=== PATIENT | male | born 1970 | race Caucasian/White ===

== ENCOUNTER 2016-02-16 20:46 | Emergency (ER) | payer OTHER ==
[2016-02-16 21:08] VITALS: BP 143/86
[2016-02-16] MEDS ORDERED: Aspirin Low Dose CHEW TAB* 81 MG PO ONE (21:13)
[2016-02-16] MEDS ORDERED: Aspirin TAB* 325 MG ONE (21:32)
[2016-02-16] MEDS ORDERED: Aspirin Low Dose CHEW TAB* 81 MG ONE (21:40)
--- NOTE | 2016-02-16 21:40 | UC ---
blair Vizcaino Timothy, scribed for Kenzie Barajas MD on 02/16/16 at 2110 . Syncope/New Syncope HPI - HPI Summary HPI Summary: Alex Lea Jr. is a 45 yo male presenting to [facility] with two syncopal episodes at 1800 and 1815. The first time he was sitting at his computer chair and started feeling dizzy, and closed his eyes for a second and opened them and a few minutes had passed. He then got up and told a coworker he wasnt feeling well, and then shortly after fell to all fours and lost consciousness. He has also had bilateral 4/10 kidney (right worse than left) and stomach pain, which is chronic. He has not had much to eat today, excepting some water and cookies. He states he has a previous Hx of similar episodes, for which his prior EKG was done in 2007, no definite diagnosis. He denies chest pain, SOB, headache, focal weakness. His Hx includes HTN, borderline DM, and anxiety. - History Of Current Complaint Stated Complaint: SYNCOPE Time Seen by Provider: 02/16/16 21:16 Hx Obtained From: Patient, Family/Dirt Contractor - father Onset/Duration: Sudden Onset Activity At Onset: At Rest Timing: Intermittent Episode Lasting - minutes Frequency: Episodes x___ - 2 Context: Unwitnessed, Loss Of Consciousness Associated Head Trauma: No Pain Intensity: 4 Pain Scale Used: 0-10 Numeric Aggravating Factor(s): Nothing Alleviating Factor(s): Spontaneous Resolution Associated Signs And Symptoms: Positive: Dizzy, Other - "kidney pain" - Risk Factors Cardiac Risk Factors: Hypertension, Family History - Allergies/Home Medications Allergies/Adverse Reactions: Allergies Allergy/AdvReac Type Severity Reaction Status Date / Time Penicillins Allergy Severe Rash Verified 02/16/16 21:09 ALL ANTIBIOTICS Allergy Severe Rash Uncoded 02/16/16 21:09 PMH/Surg Hx/FS Hx/Imm Hx Endocrine History Of: Denies: Diabetes, Thyroid Disease Cardiovascular History Of: Reports: Hypertension Denies: Cardiac Disorders Respiratory History Of: Denies: COPD, Asthma GI/ History Of: Denies: Ulcer Psychological History Of: Reports: Anxiety - Surgical History Surgical History: Yes Surgery Procedure, Year, and Place: left knee patella fx repair with pins and wires in place - Family History Known Family History: Positive: Cardiac Disease - Social History Occupation: Employed Full-time Alcohol Use: None Substance Use Type: None Smoking Status (MU): Never Smoked Tobacco Household Exposure Type: Cigarettes Review of Systems Constitutional: Negative Skin: Negative Eyes: Negative ENT: Negative Respiratory: Negative Cardiovascular: Negative Gastrointestinal: Negative Genitourinary: Other - "kidney pain" Motor: Negative Neurovascular: Negative Musculoskeletal: Negative Neurological: Other - syncope Psychological: Negative All Other Systems Reviewed And Are Negative: Yes Physical Exam Triage Information Reviewed: Yes Appearance: Well-Appearing, No Pain Distress, Obese Vital Signs: Initial Vital Signs Temp 96.7 F 02/16/16 20:55 Pulse 79 02/16/16 20:55 Resp 20 02/16/16 20:55 BP 143/86 02/16/16 20:55 Pulse Ox 100 02/16/16 20:55 Vital Signs Reviewed: Yes Eyes: Positive: Conjunctiva Clear ENT: Positive: Hearing grossly normal. Negative: Muffled/hoarse voice Neck: Positive: Supple, Nontender Respiratory: Positive: Lungs clear, Normal breath sounds, No respiratory distress Cardiovascular: Positive: RRR, No Murmur, Pulses Normal, Brisk Capillary Refill Abdomen Description: Positive: Nontender, No Organomegaly, Soft, CVA Tenderness (R) - worse than L, CVA Tenderness (L). Negative: Distended, Guarding, McBurney 's Point Tenderness, Peritoneal Signs, Pulsatile Mass Bowel Sounds: Positive: Present Musculoskeletal: Positive: Strength Intact, ROM Intact, Other: - no calf tenderness Neurological: Positive: Alert, Muscle Tone Normal Psychological Exam: Normal Skin Exam: Normal Diagnostics - EKG Cardiac Rate: 2051: NSR @ 84 BPM, AV/IV conduction, normal axis, normal QTC , small Q in III, inverted and flat T-waves in V5 and V6, no acute changes compared to 10/17/2007 Cardiac Rhythm: Sinus: Normal Syncope Course/Dx - Course Course Of Treatment: Alex Lea Jr. is a 45 yo male presenting to [facility] S/P 2 syncopal episodes with kidney and chronic stomach pain. After examination and review of EKG, he will be transfered to [facility] for higher level of care involving lab work and further imaging. - Differential Dx/Diagnosis Differential Diagnosis/HQI/PQRI: Cerebral Vascular Accident, Coronary Artery Disease, Dysrhythmia, Hypoglycemia, Myocardial Infarction, Seizure, Transient Ischemic Attack, Vasovagal Episode Provider Diagnoses: syncope - Physician Notification/Consults Discussed Patient Care With: [id number] Y[address] JOHNSON) - Discussed Pt condition. MD will see in ED. Instructed by Provider To: MD Will See In ED Discharge - Discharge Plan Condition: Stable Disposition: TRANS HIGHER LVL OF CARE FAC Discharge Disposition Comment: [facility] by ambulance Referrals: Ganga Reynoso DO [Primary Care Provider] - The documentation as recorded by the blair ricardo Timothy accurately reflects the service I personally performed and the decisions made by , Kenzie Barajas MD.
== END 2016-02-16 22:04 | disposition short-term general hospital (02) ==
LOC: UCEAST 20:46
DX: R55 Syncope and collapse (principal); R10.84 Generalized abdominal pain; N23 Unspecified renal colic; Z88.1 Allergy status to other antibiotic agents; Z88.0 Allergy status to penicillin; Z77.22 Contact with and (suspected) exposure to environmental tobacco smoke (acute) (chronic)
CPT/HCPCS: 93005; A9270-GY

== ENCOUNTER 2016-02-16 22:11 | Emergency (ER) | payer OTHER ==
[2016-02-16] MEDS ORDERED: NS 0.9% 1000 ML* 1,000 ML IV ONE (22:25)
[2016-02-16 23:03] LABS: Hematocrit 46 % (42-52); Hemoglobin 15.5 g/dl (14.0-18.0); Mean Corpuscular HGB Conc 34 g/dl (31-36); Mean Corpuscular Hemoglobin 30 pg (27-31); Mean Corpuscular Volume 90 fL (80-94); Mean Platelet Volume 9 um3 (7.4-10.4); Red Blood Count 5.11 10^6/ul (4.0-5.4); Red Cell Distribution Width 15 % (10.5-15); White Blood Count 12.6 10^3/ul (3.5-10.8)
[2016-02-16 23:18] LABS: Albumin 4.1 g/dL (3.2-5.2); BUN/Creatinine Ratio 18.5 (8-20); Calcium 9.4 mg/dL (8.6-10.3); EGFR Non-African American 74.6 (>60); Globulin 3.3 g/dL (2-4); Magnesium 1.8 mg/dL (1.9-2.7); Potassium 3.3 mmol/L (3.5-5.0); Total Bilirubin 0.9 mg/dL (0.2-1.0); Total Protein 7.4 g/dL (6.4-8.9)
[2016-02-16 23:49] LABS: TSH (Thyroid Stimulating Horm) 1.04 mcIU/mL (0.34-5.60)
[2016-02-17 00:10] VITALS: BP 112/68
--- NOTE | 2016-02-17 00:21 | ED ---
Jacinta Vizcaino Erika, scribed for Uche Malone MD on 02/16/16 at 2244 . Syncope/Near Syncope - HPI Summary HPI Summary: Patient is a 45-year-old male presenting to the ED with a CC of two syncopal episodes this evening. Patient reports that he was sitting down doing paperwork , when he began to feel dizzy, closed his eyes, and when he opened them 1.5 minutes had passed. In the second episode, pt reports he was walking, he felt dizzy, so he got onto his knee and hand and lost consciousness and fell onto the ground - he estimates this lasted 1 minute. Pt reports that he still becomes dizzy with standing. He also reports he has become dizzy in the past with blood draws and similar experiences. He is followed by Dr. Reynoso, and has an appointment with him in 2 days. - History Of Current Complaint Time Seen by Provider: 02/16/16 22:19 Hx Obtained From: Patient Onset/Duration: Gradual Onset, Lasting Minutes, Still Present Timing: Intermittent Episode Lasting Context: Unwitnessed, Loss Of Consciousness - stated Activity At Onset: Other - first sitting, Aggravating Factor(s): Position Change - Standing Alleviating Factor(s): Spontaneous Resolution Associated Signs And Symptoms: Dizzy - Allergies/Home Medications Allergies/Adverse Reactions: Allergies Allergy/AdvReac Type Severity Reaction Status Date / Time Penicillins Allergy Severe Rash Verified 02/16/16 21:09 ALL ANTIBIOTICS Allergy Severe Rash Uncoded 02/16/16 21:09 PMH/Surg Hx/FS Hx/Imm Hx Endocrine/Hematology History: Reports: Other Endocrine/Hematological Disorders - Borderline diabetes Denies: Hx Diabetes, Hx Thyroid Disease Cardiovascular History: Reports: Hx Hypertension Respiratory History: Denies: Hx Asthma, Hx Chronic Obstructive Pulmonary Disease (COPD) GI History: Denies: Hx Ulcer Psychiatric History: Reports: Hx Anxiety - Surgical History Surgery Procedure, Year, and Place: left knee patella fx repair with pins and wires in place Infectious Disease History: Denies: Hx Clostridium Difficile, Hx Hepatitis, Hx Human Immunodeficiency Virus (HIV), Hx of Known/Suspected MRSA, Hx Shingles, Hx Tuberculosis, Hx Known/ Suspected VRE, Traveled Outside the [place] in Last 30 Days - Family History Known Family History: Positive: Cardiac Disease - Social History Alcohol Use: None Hx Substance Use: No Substance Use Type: Reports: None Hx Tobacco Use: No Smoking Status (MU): Never Smoked Tobacco Review of Systems Negative: Fever Neurological: Other - Dizziness Positive: Syncope All Other Systems Reviewed And Are Negative: Yes Physical Exam Triage Information Reviewed: Yes Vital Signs On Initial Exam: Temp Pulse Resp BP Pulse Ox 99.6 F 87 19 142/91 95 02/16/16 22:37 02/16/16 22:37 02/16/16 22:37 02/16/16 22:37 02/16/16 22:37 Vital Signs Reviewed: Yes Appearance: Positive: No Pain Distress, Obese Skin: Positive: Warm Head/Face: Positive: Normal Head/Face Inspection Eyes: Positive: EOMI, CHELA ENT: Positive: Hearing grossly normal Neck: Positive: Supple Respiratory/Lung Sounds: Positive: Clear to Auscultation, Breath Sounds Present Cardiovascular: Positive: Normal, RRR. Negative: Murmur Abdomen Description: Positive: Nontender, No Organomegaly, Soft Bowel Sounds: Positive: Present Musculoskeletal: Positive: Strength/ROM Intact Neurological: Positive: Sensory/Motor Intact, Alert, Oriented to Person Place, Time, CN Intact II-III, Normal Gait AVPU Assessment: Alert Diagnostics - Vital Signs Vital Signs Temp Pulse Resp BP Pulse Ox 02/17/16 00:01 76 16 112/68 97 02/17/16 00:00 78 18 98 02/16/16 23:00 84 14 115/77 96 02/16/16 22:39 89 19 96 02/16/16 22:38 142/91 02/16/16 22:37 99.6 F 87 19 142/91 95 - Laboratory Lab Results: Lab Results 02/16/16 02/16/16 Range/Units 22:50 22:50 WBC 12.6 H (3.5-10.8) 10^3/ul RBC 5.11 (4.0-5.4) 10^6/ul Hgb 15.5 (14.0-18.0) g/dl Hct 46 (42-52) % MCV 90 (80-94) fL MCH 30 (27-31) pg MCHC 34 (31-36) g/dl RDW 15 (10.5-15) % Plt Count 203 (150-450) 10^3/ul MPV 9 (7.4-10.4) um3 Neut % (Auto) 83.1 H (38-83) % Lymph % (Auto) 7.0 L (25-47) % [place] % (Auto) 8.6 (1-9) % Eos % (Auto) 1.0 (0-6) % Baso % (Auto) 0.3 (0-2) % Absolute Neuts (auto) 10.5 H (1.5-7.7) 10^3/ul Absolute Lymphs (auto) 0.9 L (1.0-4.8) 10^3/ul Absolute Monos (auto) 1.1 H (0-0.8) 10^3/ul Absolute Eos (auto) 0.1 (0-0.6) 10^3/ul Absolute Basos (auto) 0 (0-0.2) 10^3/ul Absolute Nucleated RBC 0.01 10^3/ul Nucleated RBC % 0.1 Sodium 133 (133-145) mmol/L Potassium 3.3 L (3.5-5.0) mmol/L Chloride 97 L (101-111) mmol/L Carbon Dioxide 26 (22-32) mmol/L Anion Gap 10 (2-11) mmol/L BUN 20 (6-24) mg/dL Creatinine 1.08 (0.67-1.17) mg/dL Est GFR ( Amer) 96.0 (>60) Est GFR (Non-Af Amer) 74.6 (>60) BUN/Creatinine Ratio 18.5 (8-20) Glucose 131 H (70-100) mg/dL Calcium 9.4 (8.6-10.3) mg/dL Magnesium 1.8 L (1.9-2.7) mg/dL Total Bilirubin 0.90 (0.2-1.0) mg/dL AST 41 H (13-39) U/L ALT 92 H (7-52) U/L Alkaline Phosphatase 66 (34-104) U/L Troponin I 0.00 (<0.04) ng/mL Total Protein 7.4 (6.4-8.9) g/dL Albumin 4.1 (3.2-5.2) g/dL Globulin 3.3 (2-4) g/dL Albumin/Globulin Ratio 1.2 (1-3) TSH 1.04 (0.34-5.60) mcIU/mL Result Diagrams: 02/16/16 22:50 02/16/16 22:50 Lab Statement: Any lab studies that have been ordered have been reviewed, and results considered in the medical decision making process. - EKG 22:45 Cardiac Rate: NL - at 83 bpm EKG Rhythm: Sinus Rhythm EKG Interpretation: Non-specific T abnormality Re-Evaluation - Re-Evaluation First Eval Re-Evaluation Time: 23:57 Change: Improved Comment: Patient feels improved. To be discharged Course/Dx Assessment/Plan: A 45 y/o M presents to the ED with a CC of possible syncopal episodes. EKG shows NSR with nonspecific T abnormalities. Initial troponin is 0.00, and pt does not complain of chest pain. Pt feels improved in the ED, and will be discharged with follow up from his PCP in 2 days. - Diagnoses Provider Diagnoses: Near syncope Discharge - Discharge Plan Condition: Stable Disposition: HOME Patient Education Materials: Near Syncope (ED) Referrals: Ganga Reynoso DO [Primary Care Provider] - 2 Days The documentation as recorded by the Jacinta ricardo Erika accurately reflects the service I personally performed and the decisions made by , Uche Malone MD.
== END 2016-02-17 00:10 | disposition home or self-care (01) ==
LOC: ED 22:11
DX: R55 Syncope and collapse (principal); R42 Dizziness and giddiness; R10.84 Generalized abdominal pain; N23 Unspecified renal colic; Z88.1 Allergy status to other antibiotic agents; Z88.0 Allergy status to penicillin; Z77.22 Contact with and (suspected) exposure to environmental tobacco smoke (acute) (chronic)
CPT/HCPCS: 36415; 80053; 83735; 84443; 84484; 85025; 93005; 96360; 99282; A9270-GY